=== PATIENT | male | born 1970 | race Hispanic/Latino ===

== ENCOUNTER 2020-11-28 06:32 | Day surgery (SDC) | payer OTHER ==
[2020-11-28 07:23] LABS: Basophils # (Auto) 0.1 K/mm3 (0.0-0.1); Eosinophils # (Auto) 0.1 K/mm3 (0.0-0.4); Eosinophils % (Auto) 0.8 % (0.0-4.3); Hematocrit 42.7 % (35.5-45.6); Lymphocytes # (Auto) 1.7 K/mm3 (1.2-5.4); Lymphocytes % (Auto) 13.2 % (13.4-35.0); Mean Corpuscular HGB Conc 35 % (32-34); Mean Corpuscular Volume 98 fl (84-94); Monocytes # (Auto) 0.7 K/mm3 (0.0-0.8); Monocytes % (Auto) 5.3 % (0.0-7.3); Platelet Count 235 K/mm3 (140-440); Red Blood Count 4.36 M/mm3 (3.65-5.03); Red Cell Distribution Width 13.6 % (13.2-15.2)
[2020-11-28 07:33] LABS: INR 0.97 (0.87-1.13)
[2020-11-28 07:34] LABS: BUN/Creatinine Ratio 12; Blood Urea Nitrogen 13 mg/dL (9-20); Calcium 9.3 mg/dL (8.4-10.2); Hemolysis Index 3
[2020-11-28] MEDS ORDERED: SODIUM CHLORIDE 0.9% 500 ML 500 ML IV SCH (08:00)
[2020-11-28] MEDS ORDERED: HEPARIN/NS 5000 UNIT/500ML 1,000 ML IR ONE (08:01)
[2020-11-28] MEDS ORDERED: NITROGLYCERIN SYRINGE 3 ML ONE (08:03)
[2020-11-28] MEDS: MIDAZOLAM 2 MG/2 ML INJ ONE ×2 (09:01→09:17)
[2020-11-28] MEDS: fentaNYL 100 MCG/2 ML INJ ONE ×2 (09:01→09:17)
[2020-11-28] MEDS: LIDOCAINE (2%) 20 MG/1 ML VIAL 20 ML MDV INFILTRATI ONE ×2 (09:02→09:18)
[2020-11-28] MEDS: VERAPAMIL 5 MG/2 ML INJ ONE ×2 (09:02→09:19)
[2020-11-28] MEDS: HEPARIN 10,000 UNITS/10 ML VIAL ONE ×2 (09:02→09:19)
--- NOTE | 2020-11-28 10:06 | Cardiac Catherization Report ---
DATE OF PROCEDURE: 11/28/2020 PERIPHERAL ANGIOGRAM REFERRING PHYSICIAN: Dr. Moose Singer. INDICATIONS: The patient is a pleasant 50-year-old gentleman with a history of diabetes, hypertension, hyperlipidemia, he is an active smoker as well, presents here with claudication. Lower extremity findings are abnormal in the left leg. He is referred for peripheral angiography. Risks, benefits, alternatives explained at length prior to obtaining informed consent. 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 Dave's test in right hand is normal. A 2 mL of 2% lidocaine used to anesthetize the right wrist. A standard 6 [place]ien hydrophilic sheath used to cannulate the right radial artery via modified Seldinger technique. All exchanges performed to exchange a J-tip guidewire. JL3.5 catheter was used to engage the left main. A pigtail catheter was placed in the proximal abdominal aorta. Aortography was performed with DSA. Next, the catheter is advanced to the distal aorta. Distal aortography with computerized runoff to the feet and runoff was performed throughout bilateral lower extremities. Next there is a questionable lesion in the left iliac artery. Selective third order left iliac angiography is performed. Left external iliac artery angiography was performed as well as pressure pullback. Next, the catheter was removed from the body over wire, sheath removed. Manual pressure used to achieve hemostasis data. Aortic pressure is 115/70. The patient remained in normal sinus rhythm throughout the procedure. FINDINGS: The aortic root appears to be normal contour. Bilateral renal arteries and SMA are patent. No aneurysm is noted. There is a patent stent in the proximal left common iliac artery. Bilateral runoff confirms patent left common iliac artery stent. There is a 40-50% stenosis in the proximal left internal iliac artery just distal to the patent stent. Right iliac system is without significant disease. Bilateral common femoral arteries are without disease. The right SFA has mild disease and the 25% stenosis in the mid segment. The left SFA is occluded in the mid segment with a reconstitution in the distal left SFA. Bilateral popliteals are patent. Bilateral 3-vessel runoff is patent. I directly supervised the administration of moderate sedation with fentanyl and Versed from 09:17 to 09:40 a.m. CONCLUSION: Mild aortic atheroma without evidence of aneurysm. Patent bilateral renal arteries, patent left common iliac artery stent. Next, 40-50% left common iliac artery stenosis without evidence of pressure pullback. Next occluded mid left SFA with reconstitution of the distal left SFA. Next, bilateral popliteal and 3-vessel runoff are patent. Recommend adding Pletal therapy. 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 Follow up with Dr. Singer in the office. TID: [id number] RECEIPT: [id number] [facility]I
--- NOTE | 2020-11-28 11:33 | Short Stay Summary ---
Short Stay Documentation Date of service: 11/28/20 - Allergies and Medications Current Medications: Allergies cephalexin [From Keflex] Allergy (Verified 11/28/20 06:58) Rash Penicillins Allergy (Verified 11/28/20 06:58) Rash Home Medications Medication Instructions Recorded Confirmed Last Taken Type Aspirin EC [Halfprin EC] 81 mg PO DAILY 11/28/20 11/28/20 11/27/20 History 81 mg AtorvaSTATin [Lipitor] 40 mg PO DAILY 11/28/20 11/28/20 11/26/20 History 40 mg Metformin HCl [metFORMIN ER 500 mg PO DAILY 11/28/20 11/28/20 11/26/20 History Osmotic] 500 mg lisinopriL [Lisinopril] 10 mg PO DAILY 11/28/20 11/28/20 11/27/20 History 10 mg Active Medications Sodium Chloride (Nacl 0.9% 500 Ml) 500 mls @ 50 mls/hr IV DIRECT FLORENTINO Last Admin: 11/28/20 08:00 Dose: 50 mls/hr Documented by: - Physical exam Integumentary: other (Right radial cath site Telfa Tegaderm in place, no bleeding or hematoma noted) - Brief post op/procedure progress note Date of procedure: 11/28/20 Pre-op diagnosis: LLE Claudication Post-op diagnosis: same Procedure: Cath procedure see dictated cath report Anesthesia: local Estimated blood loss: none Condition: stable - Disposition Condition at discharge: Good Disposition: [id number] TO HOME OR SELFCARE - Discharge Diagnoses (1) Claudication of left lower extremity Status: Acute Short Stay Discharge Plan Activity: advance as tolerated Diet: low fat, low cholesterol, low salt Wound: open to air, keep clean and dry, per your surgeon's advice Special Instructions: smoking cessation Follow up with: PAUL MENDOZA [Other] - 7 Days AUGUSTINA PISANO MD [Staff Physician] - 7 Days (DVT prophylaxis patient should follow-up with Dr LEWIS Pisano at our [place] location on 12/17/2020 at 2:30 PM. #[id number])
[2020-11-28] MEDS ORDERED: CILOSTAZOL 100 MG TAB PO SCH (12:00)
[2020-11-28 12:03] VITALS: BP 144/82
--- NOTE | 2020-11-29 | Consultation ---
DATE OF CONSULTATION: 11/28/2020 PERIPHERAL VASCULAR CONSULTATION REFERRING PHYSICIAN: Dr. Singer REASON FOR CONSULTATION: Advice and opinion regarding claudication. HISTORY OF PRESENT ILLNESS: The patient is a pleasant 50-year-old gentleman with known peripheral arterial disease, diabetes, dyslipidemia, hypertension, tobacco abuse, who presents here today for angiography. He states he has pain in both legs with walking. No chest pain or shortness of breath. No syncope or presyncope. No lightheadedness or dizziness. He had an abnormal OSMIN and lower extremity arterial ultrasound. He is accompanied by his today. Denies any family history of premature heart disease. SOCIAL HISTORY: Active tobacco abuse. ALLERGIES: KEFLEX, PENICILLIN, ERYTHROMYCIN. OUTPATIENT MEDICATIONS: Include allopurinol, aspirin, atorvastatin, lisinopril, metformin. PAST MEDICAL HISTORY: As aforementioned. PHYSICAL EXAMINATION: VITAL SIGNS: Blood pressure is 127/82. In tele, he is in sinus rhythm in the 70s, O2 sats 99% on room air, respirations 12. GENERAL: This is a middle-aged gentleman in no apparent distress, oriented x3. HEENT: Sclerae are anicteric. PERRLA. NECK: Supple, no masses. No JVD. CHEST: Clear to auscultation bilaterally. Good air movement. CARDIOVASCULAR: Regular rhythm, S1, S2. ABDOMEN: Soft, nontender, nondistended, normoactive bowel sounds. So far, all 4 quadrants. EXTREMITIES: No cyanosis, clubbing, edema. Good peripheral pulses. SKIN: Intact. No rashes. DATA: His echocardiogram from the office reveals normal LV function, no significant valvulopathy. Vascular ultrasound reveals stenosis in the left SFA, ABIs abnormal accordingly. Peripheral angiogram today reveals patent left common iliac artery stent, 40% left external iliac artery stenosis, 100% left SFA, moderate nonobstructive disease in the right lower extremity. CONCLUSION: Significant symptomatic left SFA disease. PLAN: We will initiate Pletal. The patient needs to quit smoking. Continue aspirin. Medical compliance discussed at length. If the patient continues to have symptoms, consider Vascular Surgery consultation. Long discussion regarding smoking cessation today. is present. Follow up with us in the office. We will initiate Pletal therapy today. Standard radial care. Hold metformin for 2 days. TID: [id number] RECEIPT: [id number] [facility]/RANDY
== END 2020-11-28 12:31 | disposition home or self-care (01) ==
LOC: CATHLABREC 06:32
PROVIDERS: ATTEND Internal Medicine
DX: I70.202 Unspecified atherosclerosis of native arteries of extremities, left leg (principal); E11.51 Type 2 diabetes mellitus with diabetic peripheral angiopathy without gangrene; I74.09 Other arterial embolism and thrombosis of abdominal aorta; I70.0 Atherosclerosis of aorta; E78.49 Other hyperlipidemia; I10 Essential (primary) hypertension; F17.210 Nicotine dependence, cigarettes, uncomplicated; K21.9 Gastro-esophageal reflux disease without esophagitis; Z88.0 Allergy status to penicillin; Z88.8 Allergy status to other drugs, medicaments and biological substances; Z79.82 Long term (current) use of aspirin; Z79.84 Long term (current) use of oral hypoglycemic drugs; Z79.899 Other long term (current) drug therapy; Z90.49 Acquired absence of other specified parts of digestive tract; Z98.890 Other specified postprocedural states
CPT/HCPCS: 36246; 36415; 75625; 75716; 80048; 85025; 85610; 85730; 99156; 99157; C1894; J1644; J2250; J3010; J7040; Q9967